=== PATIENT | male | born 1965 | race Caucasian/White ===

== ENCOUNTER 2023-05-20 20:16 | Emergency (ER) | payer MEDICARE | END 2023-05-20 21:03 | disposition left against medical advice (07) | LOC: ED 20:16 | DX: Z53.8 Procedure and treatment not carried out for other reasons (principal) | CPT/HCPCS: 99281 ==

== ENCOUNTER 2024-04-06 05:24 | Emergency (ER) | payer MEDICARE ==
[2024-04-06 05:54] VITALS: TEMP 96.5
--- NOTE | 2024-04-06 06:11 | ERPHSYRPT ---
- History of Present Illness Source: patient Exam Limitations: no limitations Patient Subjective Stated Complaint: pt states a couple days age he got choked on his spit. pt states since then he thinks he pulled something in his ribs. pt states that when he coughs it is worse Triage Nursing Assessment: pt ambulated into the er; pt is axo x4; pt is anxious and restless; pt is grabbing his RUQ; pt is yelling out; c/o RUQ pain; pt states 7/10 to RUQ; abd is obese, soft, non tender; denies V/D, c/o nausea with pain; respiration shallow when pain flares up; pt states relief when holding pressure to RUQ; hypertensive Timing/Duration: today Hx Tetanus, Diphtheria Vaccination/Date Given: No (unknown) Hx Influenza Vaccination/Date Given: No Hx Pneumococcal Vaccination/Date Given: No <TOÑO MOFFETT - Last Filed: 04/06/24 06:09> <JUDI NELA - Last Filed: 04/06/24 08:37> - History of Present Illness Physician History: Patient has pain in his right lower ribs. He says it hurts when he takes a deep breath then or has to cough or sneeze. The pain is very sharp he points [place] area at the base of his ribs on the right slightly anterior. Deep breaths and coughs make it worse. He is not short of breath. He said no fever or chills. He says he has been coughing a lot lately. (TOÑO MOFFETT) Allergies/Adverse Reactions: bee venom protein (honey bee) Allergy (Verified 04/06/24 05:28) Travel Risk - International Travel Have you traveled outside of the country in past 3 weeks: No - Emerging Infectious Disease Are you exhibiting symptoms associated with any current EIDs: Yes Symptoms: Abdominal Pain <TOÑO MOFFETT - Last Filed: 04/06/24 06:09> - Review of Systems Constitutional: No Symptoms Eyes: No Symptoms Respiratory: No Symptoms Cardiac: No Symptoms Abdominal/Gastrointestinal: No Symptoms <TOÑO MOFFETT - Last Filed: 04/06/24 06:09> - Past Medical History Pertinent Past Medical History: Yes Neurological History: Peripheral Neuropathy ENT History: No Pertinent History Cardiac History: No Pertinent History Respiratory History: No Pertinent History Endocrine Medical History: No Pertinent History Musculoskeletal History: No Pertinent History GI Medical History: No Pertinent History History: No Pertinent History Psycho-Social History: Depression, Other Male Reproductive Disorders: No Pertinent History Other Medical History: pt unable to verbally respond. info recalled from computer history. insomnia, restless leg syndrome - Past Surgical History Past Surgical History: Yes Neuro Surgical History: No Pertinent History Cardiac: No Pertinent History Respiratory: No Pertinent History Gastrointestinal: Hemorrhoidectomy Genitourinary: No Pertinent History Musculoskeletal: Orthopedic Surgery Male Surgical History: No Pertinent History Other Surgical History: vertebra fusion - Social History Smoking Status: Current every day smoker How long have you smoked: 43 Exposure to second hand smoke: Yes Drug Use: marijuana - Social Determinants of Health Will the patient participate in the screening: Yes Do you worry about a steady place to live?: No Do you have any problems with any of the following?: No known problems In the past 12 months,have you had to go without utilities?: No Transportation Issues: No Has anyone in your support network made you feel unsafe?: No Have you or anyone in your house had to go without enough: No <TOÑO MOFFETT - Last Filed: 04/06/24 06:09> - Physical Exam General Appearance: no apparent distress Eye Exam: PERRL/EOMI Respiratory Exam: normal breath sounds, chest tenderness, lungs clear, No respiratory distress Cardiovascular Exam: regular rate/rhythm, normal heart sounds Back Exam: normal inspection, normal range of motion Extremity Exam: normal inspection, normal range of motion Neurologic Exam: alert, oriented x 3, cooperative, linoleum floor layer II-XII nml as tested SpO2: 97 <TOÑO MOFFETT - Last Filed: 04/06/24 06:09> - Physical Exam Ears, Nose, Throat Exam: normal ENT inspection Neck Exam: normal inspection Gastrointestinal/Abdomen Exam: soft, normal bowel sounds Rectal Exam: deferred Skin Exam: normal color SpO2 Interpretation: normal O2 Delivery: Room Air <JUDI NEAL - Last Filed: 04/06/24 08:37> - Nursing Vital Signs Nursing Vital Signs: Initial Vital Signs Temperature 96.5 F 04/06/24 05:30 Pulse Rate 75 04/06/24 05:30 Respiratory Rate 20 04/06/24 05:30 Blood Pressure 161/100 04/06/24 05:30 O2 Sat by Pulse Oximetry 98 04/06/24 05:30 Pain Scale Pain Intensity 0 - Course Nursing assessment & vital signs reviewed: Yes - CT Exams Chest CT Interpretation: Tele-radiologist Report <LORETTA NEALSH - Last Filed: 04/06/24 08:37> Ordered Tests: Active Orders 24 hr Category Date Time Status CHEST WITHOUT CONTRAST [CT] Stat Exams 04/06/24 06:11 Completed CBC W DIFF Stat Lab 04/06/24 06:10 Completed CMP Stat Lab 04/06/24 06:10 Completed Medication Summary Generic Name Dose Route Start Last Admin Trade Name Freq PRN Reason Stop Dose Admin Ceftriaxone Sodium 1 gm in 100 mls @ 200 mls/hr 04/06/24 08:29 Rocephin 1 Gm / 100 Ml Nacl IV 04/06/24 08:58 STAT ONE Discontinued Medications Generic Name Dose Route Start Last Admin Trade Name Freq PRN Reason Stop Dose Admin Methylprednisolone Sodium 0 mg 04/06/24 08:31 Succinate 125 mg/ Sterile IV 04/06/24 08:32 Water 2 ml STAT ONE Ketorolac Tromethamine 30 mg 04/06/24 06:42 04/06/24 06:43 Ketorolac Tromethamine 30 Mg/Ml Inj IV 04/06/24 06:43 30 mg STAT ONE Administration Ketorolac Tromethamine Confirm 04/06/24 06:42 Ketorolac Tromethamine 30 Mg/Ml Inj Administered 04/06/24 06:43 Dose 30 mg .ROUTE .STK-MED ONE Ketorolac Tromethamine 30 mg 04/06/24 08:29 Ketorolac Tromethamine 30 Mg/Ml Inj IV 04/06/24 08:30 STAT ONE Lab/Rad Data: Laboratory Result Diagrams 04/06/24 06:10 04/06/24 06:10 Laboratory Results 04/06/24 04/06/24 Range/Units 06:10 06:10 WBC 11.7 H (4.23-9.07) x10^3/uL RBC 5.63 (4.63-6.08) x10^6/uL Hgb 17.4 (13.7-17.5) g/dL Hct 51.0 (40.1-51.0) % MCV 90.6 (79.0-92.2) fL MCH 30.9 (25.7-32.2) pg MCHC 34.1 (32.3-36.5) g/dL RDW 13.7 (11.6-14.4) % Plt Count 312 (163-337) x10^3/uL MPV 9.6 (9.4-12.4) fL Gran % 63.6 (34.0-67.9) % Immature Gran % (Auto) 0.4 (0.001-0.429) % Nucleat RBC Rel Count 0.0 (0.00-0.2) % Eos # (Auto) 0.27 (0.04-0.54) x10^3/uL Immature Gran # (Auto) 0.05 H (0.001-0.031) x10^3u/L Absolute Lymphs (auto) 3.07 (1.32-3.57) x10^3/uL Absolute Monos (auto) 0.76 (0.30-0.82) x10^3/uL Absolute Nucleated RBC 0.00 (0.00-0.012) x10^3u/L Lymphocytes % 26.2 (21.8-53.1) % Monocytes % 6.5 (5.3-12.2) % Eosinophils % 2.3 (0.8-7.0) % Basophils % 1.0 (0.2-1.2) % Absolute Granulocytes 7.44 H (1.78-5.38) x10^3/uL Basophils # 0.12 H (0.01-0.08) x10^3/uL Sodium 138 (135-145) mmol/L Potassium 4.3 (3.5-5.1) mmol/L Chloride 108 H (98-107) mmol/L Carbon Dioxide 21 L (22-30) mmol/L Anion Gap 13.1 (5-15) MEQ/L BUN 9 (9-20) mg/dL Creatinine 1.09 (0.66-1.25) mg/dL Estimated GFR 78.7 ML/MIN Glucose 111 H (74-106) mg/dL Calcium 9.0 (8.4-10.2) mg/dL Total Bilirubin 0.70 (0.2-1.3) mg/dL AST 26 (17-59) U/L ALT 22 (0-50) U/L Alkaline Phosphatase 97 (38-126) U/L Serum Total Protein 7.5 (6.3-8.2) g/dL Albumin 4.5 (3.5-5.0) g/dL CT/CHEST WITHOUT CONTRAST CLINICAL HISTORY: pain COMPARISON: None. TECHNIQUE: Contiguous axial CT images of the chest were acquired without administration of intravenous contrast. Coronal and sagittal reconstructions were obtained. One of the following dose reduction techniques were utilized for this exam: Automated exposure control, adjustment of the mA and/or kV according to patient size, use of iterative reconstruction. CTDI: 16.73 mGy. DLP: 697.71 mGy.cm. FINDINGS: Lungs: Subtle right lower lung zone subpleural patch of ground glass veiling seen, could be gravitational, could be due to starting infectious alveolar infiltrates advised for clinical correlation Otherwise, the lung parenchyma is clear with no evidence of consolidation, collapse, or focal lesions. No pulmonary nodules or masses are identified. No evidence of interstitial lung disease or emphysema. No pleural effusion or pleural thickening. Mediastinum: The mediastinum is normal in size and contour. No mediastinal mass or abnormal lymphadenopathy. The heart size is within normal limits. Hilar Structures: The hilar structures appear normal without enlargement or abnormality. Trachea and Main Bronchi: The trachea and main bronchi are patent without evidence of obstruction or abnormality. Chest Wall: The chest wall is unremarkable with no evidence of soft tissue or bony abnormalities. Upper Abdomen: Visualized portions of the liver, spleen, adrenal glands, and kidneys are unremarkable. Bones: Thoracic spondylosis seen as subchondral sclerosis, anterior lipping and schmorl nodes. IMPRESSION: Subtle right lower lung zone subpleural patch of ground glass veiling seen could be gravitational, and could be due to starting infectious alveolar infiltrates advised for clinical correlation. (JUDI NEAL) - Progress Progress: improved Counseled pt/family regarding: lab results, diagnosis, need for follow-up, rad results <JUDI NEAL - Last Filed: 04/06/24 08:37> Medical Desision Making - Independent Historian Additional History obtained from: Spouse - Diagnostic Testing Diagnostic test were ordered, analyzed, and reviewed by me: Yes Radiological Interpretation: Teleradiologist Report - Risk of complications Low Risk: Low risk of morbidity from additional dx testing or treatment <JUDI NEAL - Last Filed: 04/06/24 08:37> <ZUHAIRTOÑO Waggoner - Last Filed: 04/06/24 06:09> - Departure Departure Disposition: Home Critical Care Time: No <JUDI NEAL - Last Filed: 04/06/24 08:37> - Departure Clinical Impression: Pleurisy without effusion, Extravasation of intravenous contrast medium Right lower lobe pneumonia Qualifiers: Pneumonia type: due to unspecified organism Qualified Code(s): J18.9 - Pneumonia, unspecified organism Condition: Stable Referrals: JUDI NEAL MD [Primary Care Provider] - Follow up with PCP 5 days Instructions: Pneumonia, Adult (DC), IV infiltration Additional Instructions: Discharge/Care Plan ANDREI MARCUS was seen on 04/06/24 in the Emergency Room. The patient was counseled regarding Diagnosis,Lab results, Imaging studies, need for follow up and when to return to the Emergency Room. Prescriptions given: Discharge Note I have spoken with the patient and/or caregivers. I have explained the patient's condition, diagnosis and treatment plan based on the information available to me at this time. I have answered the patient's and/or caregiver's questions and addressed any concerns. The patient and/or caregivers have as good understanding of the patient's diagnosis, condition and treatment plan as can be expected at this point. The vital signs have been stable. The patient's condition is stable and appropriate for discharge from the emergency department. The patient will pursue further outpatient evaluation with the primary care physician or other designated or consulting physician as outlined in the discharge instructions. The patient and/or caregivers are agreeable to this plan of care and follow-up instructions have been explained in detail. The patient and/or caregivers have received these instruction. The patient/and or caregivers are aware that any significant change in condition or worsening of symptoms should prompt an immediate return to this or the closest emergency department or call 911. ANDREI MARCUS was seen on 04/06/24 n the Emergency Room. At that time you were treated for an emergent condition, during your visit Laboratory, Radiology and/or other procedures may have been ordered. It is very important that you follow-up with your Primary Care Physician JUDI NEAL within the next 24-48 hours to review your Emergency Room visit and the final results of testing that was ordered. Some test results such as Urine Cultures, Blood Cultures, and other cultures if ordered will not be finalized for 24-48 hours. If you do not have a Primary Care Provider please call the medical records department at [phone] to obtain a copy of your results or you may sign into our patient portal to obtain these results by visiting us @ [email or web address] and completing the following steps: 1. Click on the Patient Portal link 2. Click the Patient Self Enrollment Link to complete the enrollment form and entering your 3. Once the enrollment form is completed you will receive an email with a temporary ID and password at the email address you provided. 4. Next choose a user name and password. Your user name must be at least 4 characters long and your password must be at least 4 characters long. 5. Choose a security question from the list and provide your answer to the qu estion. If you already have signed into the Health Portal you may access your Health C are Information 02/10 by the following steps: 1. Login to our website @ [email or web address] 2. Enter your original user name and password. FAQS The [facility] Portal is an online tool that contains your Lab Results, Radiology Reports, Visit History, Discharge Instructions and Health Summary Lab and Radiology Results will not be available for 72 hours on the portal. The Portal is a secure site, passwords are encryted and URLs are re-written so they cannot be copied and pasted. You and authorized family members are the only ones who can access your Portal. Also there is a timeout feature that protects your information if you leave the Portal page open. If you have technical difficulty please use the Contact Us link on the page this will allow you to submit any questions you have regarding the Portal or you may contact the Medical Record Department at [phone]. Prescriptions: Cephalexin Mh 500 mg [Keflex 500 mg] 500 mg PO Q6H #40 cap Methylprednisolone Packet [Medrol Dosepack] 4 mg PO UD #21 packet Ketorolac Trometh 10 mg Tab [TORAdol 10 MG TABLET] 10 mg PO QID #20 tablet
[2024-04-06 06:20] LABS: Absolute Neutrophil Ct (ANC) 7.44 x10^3/uL (1.78-5.38); Basophil (Absolute #) 0.12 x10^3/uL (0.01-0.08); Eosinophil % 2.3 % (0.8-7.0); Eosinophil (Absolute #) 0.27 x10^3/uL (0.04-0.54); Hemoglobin 17.4 g/dL (13.7-17.5); IMMATURE GRAN # 0.05 x10^3u/L (0.001-0.031); IMMATURE GRAN % 0.4 % (0.001-0.429); Lymphocyte (Absolute #) 3.07 x10^3/uL (1.32-3.57); Lymphocytes % 26.2 % (21.8-53.1); Mean Cell Volume 90.6 fL (79.0-92.2); Mean Corpuscular Hemoglobin 30.9 pg (25.7-32.2); Mean Corpuscular Hgb Concent. 34.1 g/dL (32.3-36.5); Mean Platelet Volume 9.6 fL (9.4-12.4); Monocyte (Absolute #) 0.76 x10^3/uL (0.30-0.82); Monocytes % 6.5 % (5.3-12.2); Neutrophil % 63.6 % (34.0-67.9); Platelet Count 312 x10^3/uL (163-337); Red Blood Count 5.63 x10^6/uL (4.63-6.08); Red Cell Distribution Width 13.7 % (11.6-14.4); White Blood Count 11.7 x10^3/uL (4.23-9.07)
[2024-04-06 06:26] LABS: ALBUMIN 4.5 g/dL (3.5-5.0); ANION GAP 13.1 MEQ/L (5-15); Creatinine 1 1.09 mg/dL (0.66-1.25); EST GLOMERULAR FILTRATION RATE 78.7 ML/MIN; Potassium 4.3 mmol/L (3.5-5.1); Total Protein 7.5 g/dL (6.3-8.2)
[2024-04-06 06:31] LABS: BILIRUBIN,TOTAL 0.7 mg/dL (0.2-1.3)
[2024-04-06] MEDS ORDERED: TORAdol 30 mg Injection ONE ×2 (06:42→08:38)
[2024-04-06] MEDS: TORAdol 30 mg Injection IV ONE ×2 (06:43→08:42)
[2024-04-06 08:18] VITALS: BP 155/84; PULSE 83; RESP 18; O2SAT 97
--- NOTE | 2024-04-06 08:26 | XRAY ---
CLINICAL HISTORY: pain COMPARISON: None. TECHNIQUE: Contiguous axial CT images of the chest were acquired without administration of intravenous contrast. Coronal and sagittal reconstructions were obtained. One of the following dose reduction techniques were utilized for this exam: Automated exposure control, adjustment of the mA and/or kV according to patient size, use of iterative reconstruction. CTDI: 16.73 mGy. DLP: 697.71 mGy.cm. FINDINGS: Lungs: Subtle right lower lung zone subpleural patch of ground glass veiling seen, could be gravitational, could be due to starting infectious alveolar infiltrates advised for clinical correlation Otherwise, the lung parenchyma is clear with no evidence of consolidation, collapse, or focal lesions. No pulmonary nodules or masses are identified. No evidence of interstitial lung disease or emphysema. No pleural effusion or pleural thickening. Mediastinum: The mediastinum is normal in size and contour. No mediastinal mass or abnormal lymphadenopathy. The heart size is within normal limits. Hilar Structures: The hilar structures appear normal without enlargement or abnormality. Trachea and Main Bronchi: The trachea and main bronchi are patent without evidence of obstruction or abnormality. Chest Wall: The chest wall is unremarkable with no evidence of soft tissue or bony abnormalities. Upper Abdomen: Visualized portions of the liver, spleen, adrenal glands, and kidneys are unremarkable. Bones: Thoracic spondylosis seen as subchondral sclerosis, anterior lipping and schmorl nodes. IMPRESSION: Subtle right lower lung zone subpleural patch of ground glass veiling seen could be gravitational, and could be due to starting infectious alveolar infiltrates advised for clinical correlation. Electronically Signed by: Bandar Foley MD. (04/06/2024 08:22:26 EST)
[2024-04-06] MEDS ORDERED: solu-MEDROL ONE (08:38)
[2024-04-06] MEDS ORDERED: Rocephin 1000 MG INJ ONE (08:38)
[2024-04-06] MEDS ORDERED: XYLOCAINE 1% HCL 20 ML MDV ONE (08:38)
[2024-04-06] MEDS ORDERED: Sterile H2O 10 ml IJ ONE (08:38)
[2024-04-06] MEDS: ROCEPHIN 1 GM / 100 ML NaCl 1 GM/100 ML IVPB IV ONE (08:40)
[2024-04-06] MEDS: solu-MEDROL 125 MG, Sterile H2O 10 ml 2 ML IV ONE (08:42)
[2024-04-06] MEDS: Rocephin 1000 MG INJ IM ONE (08:43)
== END 2024-04-06 09:00 | disposition home or self-care (01) ==
LOC: ED 05:24
DX: R09.1 Pleurisy (principal); J18.9 Pneumonia, unspecified organism; T80.89XA Other complications following infusion, transfusion and therapeutic injection, initial encounter; Z72.0 Tobacco use; Z79.52 Long term (current) use of systemic steroids; Z79.899 Other long term (current) drug therapy
CPT/HCPCS: 36415; 71250; 80053; 85025; 93005; 96372; 96374; 96375; 96376; 99284; J0696; J1885; J2919